=== PATIENT | female | born 1965 | race Caucasian/White ===

== ENCOUNTER 2017-09-28 10:08 | Outpatient (CLI) | payer OTHER ==
--- NOTE | 2017-09-28 10:44 | Mammography Report ---
BILATERAL DIGITAL DIAGNOSTIC MAMMOGRAM with CAD: 09/28/17 10:08:00 CLINICAL: Left breast tenderness. COMPARISON:03/25/15 FINDINGS: The breasts are almost entirely fatty.No mass, architectural distortion or suspicious calcifications. IMPRESSION: Normal mammogram. BI-RADS CATEGORY: 1 - - Negative RECOMMENDATION: Clinical followup and routine mammographic screening in one year. ACR BI-RADS MAMMOGRAPHIC CODES: 0 = Needs additional imaging evaluation; 1 = Negative; 2 = Benign; 3 = Probably benign; 4 = Suspicious; 5 = Malignant; 6 = Known biopsy-proven malignancy COMMENT: 1. Dense breast tissue, i.e., adenosis, fibrocystic changes, etc., may obscure an underlying neoplasm. 2. Approximately 10% of cancers are not detected with mammography. 3. A negative mammography report should not delay biopsy if a clinically suspicious mass is present. COMMENT: Patient follow-up letters are generated by our [employer] application.
--- NOTE | 2017-09-28 16:31 | Ultrasound Report ---
LEFT BREAST ULTRASOUND: 09/28/17 10:08:00 CLINICAL: Left breast pain and tenderness. COMPARISON: A same-day mammogram. FINDINGS: Ultrasound of the left breast(including all four quadrants and the retroareolar area) was performed and demonstrated normal predominantly fatty structures. No mass, cyst or shadowing. No fluid collection. Ultrasound of the left axilla demonstrated no lymph nodes. IMPRESSION: Normal study. No explanation for left breast pain and tenderness. BI-RADS RECOMMENDATION:
== END 2017-09-28 10:09 | disposition home or self-care (01) ==
LOC: SPVWC 10:08
PROVIDERS: ATTEND Obstetrics & Gynecology
DX: N64.4 Mastodynia (principal); N64.89 Other specified disorders of breast
CPT/HCPCS: 76642; G0204; 77066

== ENCOUNTER 2017-11-18 21:53 | Emergency (ER) | payer OTHER ==
[2017-11-18 22:24] VITALS: BP 126/83
== END 2017-11-19 01:19 | disposition left against medical advice (07) ==
LOC: ED 21:53
DX: R06.02 Shortness of breath (principal); Z53.21 Procedure and treatment not carried out due to patient leaving prior to being seen by health care provider

== ENCOUNTER 2020-08-05 15:54 | Outpatient (CLI) | payer OTHER ==
--- NOTE | 2020-08-06 09:12 | Mammography Report ---
DIGITAL SCREENING MAMMOGRAM WITH CAD, 08/05/2020 INDICATION: Routine screening mammography. TECHNIQUE: Digital bilateral 2D mammography was obtained in the craniocaudal and mediolateral obliq ue projections. This examination was interpreted with the benefit of Computer-Aided Detection analysi s. COMPARISON: 06/07/2012 FINDINGS: Breast Density: There are scattered areas of fibroglandular density. There is no evidence of dominant mass, suspicious calcifications or architectural distortion in eithe r breast. No interval change. IMPRESSION: No evidence of malignancy. Follow up recommendation: Routine yearly BI-RADS Category 1: Negative. A "normal" or negative report should not discourage follow up or biopsy of a clinically significant f inding. A written summary of these findings will be mailed to the patient. The patient will be entered into a mammography reporting system which will generate a reminder letter for the patient's next appointmen t at the appropriate interval. The [employer] recommends yearly mammograms starting at age 40 and continuing as l ruby as a woman is in good health. Breast MRI is recommended for women with an approximate 20-25% or greater lifetime risk of breast cancer, including women with a strong family history of breast or ova yeimi cancer or who have been treated for Hodgkin's disease. Signer Name: Nilsa Masterson MD Signed: 08/06/2020 9:07 AM Workstation Name: [id number]
== END 2020-08-05 15:55 | disposition home or self-care (01) ==
LOC: SPVWC 15:54
PROVIDERS: ATTEND Internal Medicine
DX: Z12.31 Encounter for screening mammogram for malignant neoplasm of breast (principal)
CPT/HCPCS: 77067